=== PATIENT | female | born 1995 | race Hispanic/Latino ===

== ENCOUNTER 2018-08-09 15:52 | Emergency (ER) | payer OTHER ==
[2018-08-09] MEDS ORDERED: SILVER SULFADIAZINE CREAM 50 GM TP ONE (16:36)
[2018-08-09] MEDS ORDERED: TETANUS/DIPHTHERIA TOXOID [ADULT] 0.5 ML VIAL IM ONE (16:36)
[2018-08-09] MEDS ORDERED: ACETAMINOPHEN 325 MG TAB ONE (16:36)
== END 2018-08-09 17:22 | disposition home or self-care (01) ==
LOC: EDH 15:52
DX: T22.111A Burn of first degree of right forearm, initial encounter (principal); T31.0 Burns involving less than 10% of body surface; S50.811A Abrasion of right forearm, initial encounter; X13.1XXA Other contact with steam and other hot vapors, initial encounter; Y93.89 Activity, other specified; Y92.098 Other place in other non-institutional residence as the place of occurrence of the external cause; Y99.8 Other external cause status
CPT/HCPCS: 16000; 73090; 90471; 90714

== ENCOUNTER 2019-06-14 19:27 | Emergency (ER) | payer MEDICAID ==
[2019-06-14] MEDS ORDERED: DiphenhydrAMINE HCL 50 MG/ML VIAL ONE (19:44)
[2019-06-14] MEDS ORDERED: METHYLPREDNISOLONE SOD SUCC 125MG/2ML VIAL ONE (19:44)
[2019-06-14] MEDS ORDERED: FAMOTIDINE/PF 20 MG/2 ML VIAL IV ONE (19:45)
[2019-06-14] MEDS ORDERED: SODIUM CHLORIDE 0.9% 1000ML 1,000 ML IV ONE (19:48)
[2019-06-14 19:52] LABS: BASOPHILS % (AUTO) 0.3 % (0.0-5.0); EOSINOPHILS % (AUTO) 0.7 % (0.0-8.0); HEMATOCRIT 39.3 % (36-48); LYMPHOCYTES % (AUTO) 24.1 % (21.0-51.0); MEAN CORPUSCULAR HEMOGLOBIN 29.9 pg (27.0-33.0); MEAN CORPUSCULAR HGB CONC 34.7 g/dL (32.0-36.0); MEAN CORPUSCULAR VOLUME 86.2 fL (80-100); MONOCYTES % (AUTO) 7.3 % (3.0-13.0); NEUTROPHILS % (AUTO) 67.6 % (40.0-77.0); PLATELET COUNT (AUTO) 269 K/uL (130-400); RED BLOOD CELL COUNT(AUTO) 4.56 MIL/uL (4.00-5.50); RED CELL DISTRIBUTION WIDTH 14.4 % (11.0-15.5); WHITE BLOOD COUNT (AUTO) 14.7 K/uL (4.8-10.8)
[2019-06-14 20:04] LABS: CREATININE 0.5 mg/dL (0.5-1.5); POTASSIUM 3.9 mmol/L (3.5-5.1)
== END 2019-06-14 21:05 | disposition home or self-care (01) ==
LOC: EDH 19:27
DX: T63.421A Toxic effect of venom of ants, accidental (unintentional), initial encounter (principal); Y92.89 Other specified places as the place of occurrence of the external cause
CPT/HCPCS: 36415; 80048; 85025; 96374; 96375; 99284; J1200; J2930; J3490; J7030